=== PATIENT | female | born 1950 | race Caucasian/White ===

== ENCOUNTER 2018-08-15 11:24 | Emergency (ER) | payer MEDICARE, OTHER ==
--- NOTE | 2018-08-15 12:03 | EDM.PDOC ---
ED HPI GENERAL MEDICAL PROBLEM - General Chief Complaint: Wound Recheck Stated Complaint: POSSIBLE INFECTED LEFT LEG Time Seen by Provider: 08/15/18 11:45 Source of Information: Reports: Patient - History of Present Illness INITIAL COMMENTS - FREE TEXT/NARRATIVE: 68-year-old presents concerns of infection at the site of a skin biopsy. Her audio/video engineer did a biopsy of her left guerrero for possible melanoma in June. Since this time she's had ongoing chronic wound at the site. This morning she noticed surrounding erythema. No significant change in discharge. No purulence. No fevers or systemic symptoms. - Related Data Allergies Allergy/AdvReac Type Severity Reaction Status Date / Time No Known Allergies Allergy Verified 08/15/18 11:38 Home Meds: Home Meds Cephalexin [Keflex] 500 mg PO QID #20 capsule 08/15/18 [Rx] Potassium Chloride 08/15/18 [History] hydroCHLOROthiazide [Hydrochlorothiazide] 08/15/18 [History] Past Medical History Cardiovascular History: Reports: Hypertension - Past Surgical History Female Surgical History: Reports: Hysterectomy Musculoskeletal Surgical History: Reports: Knee Replacement Social & Family History - Tobacco Use Smoking Status *Q: Never Smoker ED ROS GENERAL - Review of Systems Review Of Systems: See Below Constitutional: Reports: No Symptoms HEENT: Reports: No Symptoms Respiratory: Reports: No Symptoms Cardiovascular: Reports: No Symptoms Endocrine: Reports: No Symptoms GI/Abdominal: Reports: No Symptoms : Reports: No Symptoms Musculoskeletal: Reports: No Symptoms Skin: Reports: Wound Neurological: Reports: No Symptoms Psychiatric: Reports: No Symptoms Hematologic/Lymphatic: Reports: No Symptoms Immunologic: Reports: No Symptoms ED EXAM, SKIN/RASH Exam: See Below Exam Limited By: No Limitations General Appearance: Alert, No Apparent Distress Ears: Normal External Exam Nose: Normal Inspection Throat/Mouth: Normal Inspection Head: Atraumatic, Normocephalic Neck: Normal Inspection Respiratory/Chest: No Respiratory Distress, Lungs Clear Cardiovascular: Regular Rate, Rhythm GI/Abdominal: Normal Bowel Sounds, Soft, Non-Tender Back Exam: Normal Inspection Extremities: Normal Inspection Neurological: Alert, Oriented Psychiatric: Normal Affect, Normal Mood Skin: Warm, Dry, Other (mild erythema surrounding chronic wound of the left guerrero ) Course - Vital Signs Last Recorded V/S: Last Vital Signs Temp 36.4 C 08/15/18 11:43 Pulse 76 08/15/18 11:43 Resp 14 08/15/18 11:43 BP 148/89 H 08/15/18 11:43 Pulse Ox 98 08/15/18 11:43 - Re-Assessments/Exams Free Text/Narrative Re-Assessment/Exam: 68 yo presents with concerns of cellulitis surrounding chronic wound of the left guerrero. On exam the biopsy site on her left guerrero does have mild surrounding erythema. No fluctuance or purulence. Patient is quite anxious about superinfection, will start keflex rather than further observation, which is reasonable She is going to follow up with her audio/video engineer or return to the ER prn. 08/15/18 12:09 Departure - Departure Time of Disposition: 12:02 Disposition: Home, Self-Care 01 Clinical Impression: Wound infection - Discharge Information Prescriptions: Cephalexin [Keflex] 500 mg PO QID #20 capsule Instructions: Cellulitis, Adult, [id number] Referrals: PCP,None [Primary Care Provider] - Forms: ED Department Discharge Additional Instructions: Please take the prescribed antibiotic. See your audio/video engineer for continued redness or drainage, or return to the ER as discussed.
== END 2018-08-15 12:08 | disposition home or self-care (01) ==
LOC: JP.ED 11:24
DX: T81.40XA Infection following a procedure, unspecified, initial encounter (principal); I10 Essential (primary) hypertension; Z90.710 Acquired absence of both cervix and uterus
CPT/HCPCS: 99282